=== PATIENT | female | born 1930 | race Caucasian/White ===

== ENCOUNTER 2017-10-17 09:52 | Emergency (ER) | payer OTHER, MEDICAID ==
[~2017-10-17] VITALS: Ht 152.4 cm; Wt 47.6 kg
[~2017-10-17 09:52] MED LIST: ACID CONTROL75 MG PO; AMBIENCR PO; AMITRIPTYLINE H10 M1 PO; ANTABUSE500 MG PO; APAP650 PO; ATIVAN0.5 MG PO; BISACODYL SUPP10 MG RECTAL; BISACODYL5 MG RECTAL; BUMEX PO; BUSPAR 5 MG TABL5 M1 PO; CARDIZEM30 MG PO; CLONAZEPAM PO; COLACE100 MG PO; COMPRO25 MG RE; CRANBERRY450 M1 PO; CYMBALTA30 MG PO; DEPAKOTE125 MG PAD; DEPAKOTE125 MG PO; DICLOFENAC SOD50 M1 PO; FAMOTIDINE20 MG PO; FEVERALL650 MG RECTAL; IBUPROFEN 200200 M1 PO; LEVOTHYROXINE PO; LEVOTHYROXINE0.05 MG PO; LIDODERM 5%1 PATCH; LIDODERM 5%1 PATCH TOP; LOPRESSOR 12.12.5 MG PO; LYRICA 50 MG50 MG PO; MELATONIN3 MG PO; METHOTREXATE PO; MILK OF MA2400 MG/10 PO; MIRALAX255 GM PO; MOBIC7.5 M1 PO; MS CONTIN15 MG PO; MYLANTA 12 OZ355 M1 PO; NITROGLYCERIN0.4 MG SUBLING; OXYCODONE HCL5 M1 PO; OXYCONTIN CR 1010 M1 PO; PREDNISONE 20 M20 M1 PO; REMERON15 MG PO; ROPINIROLE HCL0.5 MG PO; SENNA LAXATIVE25 MG PO; SENNA-LAX8.6 MG PO; SYNTHROID50 MCG PO; TRAZODONE HCL50 MG PO; VISTARIL 25 MG25 M1 PO; VITAMIN D1000 UNI1 PO
[2017-10-17] MEDS ORDERED: FLOMAX0.4 MG PO (10:08)
[2017-10-17] MEDS ORDERED: SYNTHROID75 MCG PO (10:16)
[2017-10-17] MEDS ORDERED: OXYBUTYNIN 5 MG5 M2 PO (10:17)
[2017-10-17] MEDS ORDERED: REMERON15 M2 PO (10:17)
[2017-10-17] MEDS ORDERED: FLEXERIL PO (10:19)
[2017-10-17] MEDS ORDERED: PEPCID20 MG PO (10:19)
[2017-10-17] MEDS ORDERED: TRAMADOL 50 MG50 MG PO (10:19)
[2017-10-17] MEDS ORDERED: ATIVAN1 MG PO (10:21)
[2017-10-17] MEDS ORDERED: PERCOCET PO (10:23)
== END 2017-10-17 12:38 | disposition home or self-care (01) ==
LOC: ER 09:52
DX: S01.412A Laceration without foreign body of left cheek and temporomandibular area, initial encounter (principal); Z88.5 Allergy status to narcotic agent; Z88.1 Allergy status to other antibiotic agents; Z88.0 Allergy status to penicillin; Z88.2 Allergy status to sulfonamides; Z88.8 Allergy status to other drugs, medicaments and biological substances; W18.39XA Other fall on same level, initial encounter; Y93.89 Activity, other specified; Y92.89 Other specified places as the place of occurrence of the external cause; Y99.8 Other external cause status